=== PATIENT | female | born 1995 | race Caucasian/White ===

== ENCOUNTER 2024-12-19 05:31 | Inpatient (IN) ==
[2024-12-19] MEDS ORDERED: LIDOCAINE 1% LOCAL 20 ML VIAL INFIL PRN (06:12)
[2024-12-19] MEDS ORDERED: OXYTOCIN 30 UNITS/NSS 30 UNITS/500 ML BAG IV PRN (06:12)
[2024-12-19] MEDS: LACTATED RINGER'S 1,000 ML IV PRN (06:19)
[2024-12-19 06:40] LABS: Hematocrit (blood only) 37.2 % (37.0-47.0); Hemoglobin 12.3 g/dl (12.0-16.0); Mean Corpuscular Hemoglobin 29.9 pg (25.0-34.0); Mean Corpuscular Volume 90.3 fL (80.0-100.0); Platelet Count 222 K/uL (130-400); RDW Standard Deviation 45.6 fL (36.4-46.3); Red Blood Count 4.12 M/uL (4.20-5.40); White Blood Count 13.70 K/ul (4.8-10.8)
[2024-12-19] MEDS ORDERED: NALBUPHINE HCL INJ 10 MG/ML AMP IV PRN ×2 (07:04→13:23)
[2024-12-19] MEDS ORDERED: diphenhydrAMINE 50 MG/ML VIAL IV PRN ×2 (07:04→13:23)
[2024-12-19] MEDS ORDERED: LIDOCAINE 2% MPF LOCAL 5 ML VIAL EPI PRN (07:04)
[2024-12-19] MEDS ORDERED: ROPIVACAINE 0.5% PF 5 MG/ML 20 ML VIAL EPI PRN (07:04)
[2024-12-19] MEDS ORDERED: ONDANSETRON INJ 2 MG/ML 2 ML VIAL IV PRN ×2 (07:04→13:44)
[2024-12-19] MEDS ORDERED: NALOXONE HCL 1 MG in SODIUM CHLORIDE 0.9% 1,000 ML IV PRN ×2 (07:04→13:23)
[2024-12-19] MEDS ORDERED: NALOXONE HCL 0.4 MG/1 ML VIAL/CARP IV PRN ×2 (07:04→13:23)
[2024-12-19] MEDS ORDERED: BUPIVACAINE 0.25% PF 30 ML VIAL EPI PRN (07:04)
[2024-12-19] MEDS ORDERED: SODIUM CHLORIDE 0.9% PF INJ 10 ML VIAL EPI PRN (07:04)
[2024-12-19] MEDS ORDERED: fentANYL 2 MCG/ML BUPIVacaine 0.125%-NSS 100ML BAG EPI PRN (07:04)
--- NOTE | 2024-12-19 07:07 | Anesthesiology Consultation ---
Date of Service December 19, 2024 Assessment & Plan (1) Encounter for pre-operative examination: Chart Review Chart Review: Patient NOT seen in Pre Admission Testing and Acceptable Risk for Labor Epidural Consults Requested none History Height/Weight Height: 5 ft 5 in Weight: 83.461 kg Allergies Allergy/AdvReac Type Severity Reaction Status Date / Time No Known Allergies Allergy Verified 12/19/24 05:50 Medications Home Medications Medication Instructions Recorded Confirmed Last Taken vitamins no.119-iron 1 tab PO DAILY 01/01/24 12/19/24 12/18/24 fumarate 29 mg-folic acid 1 mg tablet Active Medications Generic Name Dose Route Start Last Admin Trade Name Freq PRN Reason Stop Dose Admin Lactated Ringer's 1,000 mls @ 125 mls/hr 12/19/24 06:12 12/19/24 07:14 Lr IV 12/21/24 06:11 125 mls/hr .Q8H PRN Administration L&D Protocol Protocol Past Medical History Medical History (Updated 12/19/24 @ 07:05 by Mati Bal MD) Encounter for pre-operative examination Elevated blood pressure reading Exercise / Class Metabolic Activity II 4-5 Yardwork/Stairs/Walk up hill Past Family History Family History Grandmother (Maternal) Colorectal cancer Grandfather (Paternal) Myocardial infarction Denies family history of Ovarian cancer Breast cancer Uterine cancer Past Surgical History Surgical History H/O wisdom tooth extraction Hx of tonsillectomy Hx of LASIK Social History Smoking Status: Never smoker Do You Dip or Chew Tobacco: No Hx Alcohol Use: No Hx Substance Use: Yes substance use type: does not use Physical Exam Vital Signs Last Vital Signs Temp 36.9 C 12/19/24 05:50 Pulse 93 H 12/19/24 07:02 Resp 18 12/19/24 05:50 BP 122/76 12/19/24 05:53 Pulse Ox 100 12/19/24 07:02 Testing Laboratory Results 12/19/24 06:21
[2024-12-19] MEDS: LIDOCAINE 2%/EPINEPHRINE 1:200,000 20 ML PF ONE (07:34)
[2024-12-19] MEDS: BUPIVACAINE 0.25% PF 30 ML VIAL ONE (07:34)
[2024-12-19] MEDS: fentANYL 2 MCG/ML BUPIVacaine 0.125%-NSS 100ML BAG ONE (07:34)
--- NOTE | 2024-12-19 08:09 | History & Physical Report ---
Date of Service December 19, 2024 Assessment & Plan (1) Encounter for supervision of normal intrauterine in primigravida, antepartum: Plan: Deonna is a 29-year-old G1, P0 currently at 40 weeks 2 days gestational age presents in labor. has been uncomplicated to date. GBS negative. Vitals within normal limits. (2) Normal labor: Admission and Anticipated Discharge Date Admission Date: December 19, 2024 History of Present Illness Primary Care Provider: ADRIANO eDwey 29-year-old presents Deonna is a 29-year-old currently at 40 weeks 2 days gestational age presents in labor. Reporting regular painful contractions. Denies leakage of fluid. Good movement noted. has been uncomplicated to date Allergies Allergy/AdvReac Type Severity Reaction Status Date / Time No Known Allergies Allergy Verified 12/19/24 05:50 Home Medications Medication Instructions Recorded Confirmed Type vitamins no.119-iron 1 tab PO DAILY 01/01/24 12/19/24 History fumarate 29 mg-folic acid 1 mg tablet Patient History Medical History (Updated 12/19/24 @ 08:08 by Sarthak Rainey MD) Encounter for pre-operative examination Elevated blood pressure reading Surgical History H/O wisdom tooth extraction Hx of tonsillectomy Hx of LASIK Family History Grandmother (Maternal) Colorectal cancer Grandfather (Paternal) Myocardial infarction Denies family history of Ovarian cancer Breast cancer Uterine cancer Social History Smoking Status: Never smoker Do You Dip or Chew Tobacco: No; Hx Alcohol Use: No Hx Substance Use: Yes Preferred Language: Micronesian Applied Statistician Required: No Beliefs That Will Affect Care: None marital status: marital status details: Candelario Grace (28) [phone] Current Living Situation: Spouse Current Living Situation Comment: Lives with - 1 dog current occupational status: employed 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 How many Children do You have: 0 How many Children do You have Comment: 0 Other Information That Helps Us Care for You: No Feels Safe at Home: Yes Safety Concerns: Feels Safe At This Time Do you think of yourself as: straight/heterosexual Gender Identity: Female Assistive Devices: None Physical Exam Genitourinary: Manual OB Exam: + cervical dilation 5 cm OB Exam Monitor Tracing: + external FHT monitor used, + external uterine monitor used, + category I and + normal FHT variability Exam per nurse Results & Data Vital Signs (Past 12 Hours) Vital Signs Temp Pulse Resp BP Pulse Ox 12/19/24 07:38 77 95 12/19/24 07:37 94 12/19/24 07:37 77 12/19/24 07:37 78 122/63 12/19/24 07:35 76 123/65 12/19/24 07:33 77 121/62 96 12/19/24 07:29 80 93 12/19/24 07:28 99 12/19/24 07:28 81 12/19/24 07:28 75 115/69 12/19/24 07:25 85 118/67 12/19/24 07:23 88 100 12/19/24 07:18 87 100 12/19/24 07:13 94 H 99 12/19/24 07:09 90 135/74 12/19/24 07:08 88 100 12/19/24 07:02 93 H 100 12/19/24 06:57 95 H 100 12/19/24 06:52 85 100 12/19/24 06:47 92 H 100 12/19/24 06:44 86 93 12/19/24 06:42 92 H 100 12/19/24 06:37 86 100 12/19/24 06:32 96 H 98 12/19/24 06:27 82 97 12/19/24 05:53 96 H 122/76 12/19/24 05:50 36.9 C 18 Coding Level of Care Code None Diagnoses Encounter for supervision of normal intrauterine in primigravida, ant epartum Z34.00 Normal labor O80; Z37.9
--- NOTE | 2024-12-19 09:08 | Labor Progress Brief Note ---
Date of Service December 19, 2024 Subjective comfortable w/ epidural Assessment & Plan (1) Normal labor: Plan: 29 yo G1 at 40 2/7 wga admitted in labor VSS Fetus cat 2 w/ intermit variables but good variability Labor - good progress noted, ?srom on last nursing exam but forebag palpated. Discussed arom and pt agreeable, tolerated well GBS neg epidural in place Admission and Anticipated Discharge Date Admission Date: December 19, 2024 Physical Exam Genitourinary: Manual OB Exam: + cervical dilation (8-9), + cervical effacement 90% and + station -1 and 0 OB Exam Monitor Tracing: + external FHT monitor used, + external uterine monitor used (q3) and + category II (145/mod/+accel/intermit variables) Results & Data Vital Signs (Past 12 Hours) Vital Signs Temp Pulse Resp BP Pulse Ox 12/19/24 08:58 74 99 12/19/24 08:55 75 125/76 12/19/24 08:53 77 100 12/19/24 08:48 75 99 12/19/24 08:43 89 99 12/19/24 08:41 84 126/66 12/19/24 08:38 76 98 12/19/24 08:33 75 99 12/19/24 08:28 86 98 12/19/24 08:24 84 123/78 12/19/24 08:23 80 97 12/19/24 08:18 78 97 12/19/24 08:13 86 96 12/19/24 08:10 75 122/77 12/19/24 08:08 86 95 12/19/24 08:03 84 96 12/19/24 07:58 85 96 12/19/24 07:53 89 125/79 97 12/19/24 07:49 78 130/81 12/19/24 07:48 79 97 12/19/24 07:43 75 113/57 L 95 12/19/24 07:39 98.6 F 80 18 113/57 L 95 12/19/24 07:38 77 95 12/19/24 07:37 94 12/19/24 07:37 77 12/19/24 07:37 78 122/63 12/19/24 07:35 76 123/65 12/19/24 07:33 77 121/62 96 12/19/24 07:29 80 93 12/19/24 07:28 99 12/19/24 07:28 81 12/19/24 07:28 75 115/69 12/19/24 07:25 85 118/67 12/19/24 07:23 88 100 12/19/24 07:18 87 100 12/19/24 07:13 94 H 99 12/19/24 07:09 90 135/74 12/19/24 07:08 88 100 12/19/24 07:02 93 H 100 12/19/24 06:57 95 H 100 12/19/24 06:52 85 100 12/19/24 06:47 92 H 100 12/19/24 06:44 86 93 12/19/24 06:42 92 H 100 12/19/24 06:37 86 100 12/19/24 06:32 96 H 98 12/19/24 06:27 82 97 12/19/24 05:53 96 H 122/76 12/19/24 05:50 98.4 F 18 Coding Level of Care Code None Diagnoses Normal labor O80; Z37.9
[2024-12-19] MEDS: SODIUM CHLORIDE 0.9% PF INJ 10 ML VIAL ONE (10:37)
[2024-12-19] MEDS: BUPIVACAINE 0.25% PF 30 ML VIAL EPI STA (10:39)
[2024-12-19] MEDS: SODIUM CHLORIDE 0.9% PF INJ 10 ML VIAL EPI STA (10:39)
[2024-12-19] MEDS: LIDOCAINE 2%/EPINEPHRINE 1:200,000 20 ML PF EPI STA (10:39)
[2024-12-19] MEDS ORDERED: PHENYLEPHRINE HCL 25 MG/250 ML NSS IV ONE (12:35)
[2024-12-19] MEDS ORDERED: DEXAMETHASONE SOD INJ 4 MG/ML VIAL ONE (12:35)
[2024-12-19] MEDS ORDERED: LIDOCAINE 2%/EPINEPHRINE 1:200,000 20 ML PF ONE (12:35)
[2024-12-19] MEDS ORDERED: ONDANSETRON INJ 2 MG/ML 2 ML VIAL ONE (12:35)
[2024-12-19] MEDS ORDERED: PHENYLEPHRINE 100MCG/ML 5ML SYR ONE ×2 (12:35→13:14)
[2024-12-19] MEDS ORDERED: OXYTOCIN 10 UNITS/ML VIAL ONE (12:35)
[2024-12-19] MEDS: TERBUTALINE SULFATE 1 MG/ML VIAL SQ ONE (12:36)
[2024-12-19] MEDS ORDERED: MoRPHine SULFATE PF 1 MG/ML 10 ML AMP/VIAL ONE (12:36)
[2024-12-19] MEDS: AZITHROMYCIN 500 MG/255 ML BAG IV ONE (13:00)
[2024-12-19 13:12] LABS: Base Excess Cord Arterial Bld -5.8 mEq/L (-9-1.8); Base Excess Cord Venous Blood -5.5 mEq/L (-7.7-1.9); CO2 Cord Arterial Blood 61 mmHg (39.1-73.5); Cord Venous Blood PO2 < 20 mmHg (14.1-43.3); HCO3 Cord Arterial Blood 23 mmol/L (19.7-28.5); Oxygen Sat Cord Arterial Blood < 60.0 % (<60); PO2 Cord Arterial Blood < 20 mmHg (4.1-31.7); pH Cord Arterial Blood 7.19 (7.1-7.38)
[2024-12-19] MEDS ORDERED: MoRPHine SULFATE PF 1 MG/ML 10 ML AMP/VIAL EPI ONE (13:23)
[2024-12-19] MEDS ORDERED: LACTATED RINGER'S 500 ML IV PRN (13:23)
[2024-12-19] MEDS ORDERED: NALOXONE HCL 0.08 MG in SYRINGE 1.8 ML IV PRN (13:23)
[2024-12-19] MEDS ORDERED: DC INTRASPINAL MORPHINE SCH (13:30)
[2024-12-19] MEDS ORDERED: SODIUM CHLORIDE 0.9% 1,000 ML IV SCH (13:30)
[2024-12-19] MEDS ORDERED: NO NARCOTICS OR SEDATIVES SCH (13:30)
[2024-12-19] MEDS ORDERED: METHYLERGONOVINE MALEATE 0.2 MG/ML AMP ONE (13:40)
[2024-12-19] MEDS ORDERED: MAGNESIUM HYDROXIDE SUSP 30 ML UDC PO PRN (13:44)
[2024-12-19] MEDS ORDERED: HYDROCORTISONE ACETATE 25 MG SUPP PR PRN (13:44)
[2024-12-19] MEDS ORDERED: SENNA 8.6 MG TAB PO PRN (13:44)
[2024-12-19] MEDS ORDERED: CALCIUM CARBONATE 500 MG CHEWABLE TAB PO PRN (13:44)
--- NOTE | 2024-12-19 14:05 | Operative Report ---
Post Operative Report Pre & Post Diagnosis Operation Date: 12/19/24 12:40 Pre-Op Diagnosis: Intrauterine at 40 2/7 wga, labor, non-reassuring heart tones, failed vacuum Post-Op Diagnosis: Intrauterine at 40 2/7 wga, labor, non-reassuring heart tones, failed vacuum I identified the patient and participated in the time-out.: Yes Procedure Operation Date: 12/19/24 12:40 Actual Procedures p Primary Low Transverse Section in LD; DELIVERY OF LIVE MALE AT 1254, Repair of Vaginal Laceration - Alka Zazueta MD Surgeon Alka Zazueta MD Mental Health Director MD Simona Quantitative Blood Loss (QBL) 928 Findings Consistent with Post-Op Diagnosis Viable male infant with APGARS 9 and 9 weighing 8lbs 6oz. Normal appearing uterus, bilateral fallopian tubes, ovaries. Fluids UOP 100cc clear urine by shaikh catheter Specimens Cord blood Drains Shaikh draining clear urine Anesthesia Type Labor Epidural Complications none Disposition Accompanied Patient To Recovery: Yes Disposition: L&D Indications 29 yo G1 at 40 2/7 wga presented early this morning in labor. She received an epidural for pain control. She was suspected to undergo srom however forebag was palpated at approximately 8cm. Arom of forebag was then performed and she progressed to complete. Shortly after, pushing began however deep variable decelerations were noted so pushing was paused to allow fetus to recover. When pushing began again, fetus was noted to be +2 station with good effort but variables again began. Given good effort and descent with pushing, discussed attempt at vacuum assisted delivery vs CS, risks and benefits of each. See note for details. Due to tracing and delivery not being imminent, vacuum was stopped and decision was made to proceed with CS Description of Procedure The patient was taken to the operating room after consents were ensured. The patient was properly identified. Epidural anesthesia was bolused without difficulty. The patient was placed in a dorsal supine position with left lateral tilt, then prepped and draped in normal sterile fashion. Surgical time out was performed. Antibiotics were given for prophylaxis. Anesthesia was tested to ensure adequate surgical levels. Pfannenstiel skin incision was performed and carried down to the underlying fascia with a knife. The fascia was then nicked in the midline and extended laterally with pickups and Nelson scissors. Superior portion of the fascia was grasped with Kochers x2 and elevated off the underlying rectus muscles using blunt dissection. Inferior portion of the fascia was then grasped with Chon clamps x2 and also elevated off the underlying muscles with blunt dissection. Midline was identified. The peritoneum was then entered and extended to provide adequate room for delivery of baby. A hand was inserted into the abdomen, uterus was noted to be clear of adhesions. Bladder blade was inserted, bladder flap was created in the usual fashion. A low transverse uterine incision was made in the uterus and extended bluntly in a superior to inferior fashion. Light meconium was noted upon entry into the uterus. head was grasped and elevated through the hysterotomy in an atraumatic fashion. The baby delivered in DANE position, no nuchal cord. Remainder of the body delivered without incident. Nose and mouth were bulb suctioned on the surgical field. The cord was double clamped and cut, baby was handed off to awaiting pediatrics staff. Cord segment and blood were obtained. Placenta was then expressed from the uterus. The uterus was exteriorized. Several passes were made inside the uterus to remove the remaining membranes. Attention was then turned to the hysterotomy, which was then closed with a running locked suture of 0 Vicryl on a CTX needle. An imbricating layer was then performed using 0-Monocryl. There was noted to be good hemostasis. The posterior cul-de-sac was then inspected and cleaned of clot and debris. The hysterotomy was again inspected and noted to be hemostatic. The uterus was returned to the abdomen. The right and left pericolic gutters were cleaned of all clot and debris. The hysterotomy was again noted to be hemostatic. Space of Retzius was noted to be hemostatic. August was applied to the hysterotomy and space of retzius. The fascia was then closed with a running suture of 0 Vicryl on a CT1 needle. Subcutaneous tissue was copiously irrigated and noted to be hemostatic. Subcutaneous tissue was re-approximated using 2-0 plain gut. The skin was then closed with a running suture of 3-0 Monocryl in a subcuticular fashion. At termination of the procedure, fundal pressure was applied and increased lochia was expressed so methergine was administered which improved it. Pressure dressing was applied to the patient. Vaginal exam was performed which demonstrated vaginal abrasion at the introitus. This was repaired with 3-0 vicryl, there was then excellent hemostasis. She tolerated the procedure well. All sponge, needle, instrument counts were correct x 2. I attest to the content of the Intraoperative Record and any orders documented therein. Any exceptions are noted below. OB Procedure Charges 09011
[2024-12-19] MEDS: KETOROLAC 30 MG/ML VIAL IV SCH (14:34)
--- NOTE | 2024-12-19 14:41 | Labor Progress Brief Note ---
Date of Service December 19, 2024 Assessment & Plan (1) Normal labor: Plan: Delayed entry due to patient care. Called to bedside to assess pushing and presented immediately. descent noted with pushing however deep variables occurred with contractions/pushing but recovered in between and pt had progressed spontaneously. Discussed attempt at vacuum given station and good effort but potential need for if vacuum not rapidly successful. Discussed risks and benefits of each with risk including cephalohematoma, IVH, scalp laceration and pt agreeable. Peds and anesthesia were made aware. Straight catheter was performed. head was palpated in DANE position and vacuum applied over flexion point and increased into green zone. With next contraction, pt pushed and vacuum was pulled with progress noted. Vacuum was pulled with next contraction however tracing took longer to recover following this without imminent delivery so decision was made to stop vacuum and proceed with CS for NRFHT. Terbutaline was administered and heart tracing did recover to baseline. Verbal informed consent for CS was obtained due to urgency. Discussed indications, risks including infection, bleeding, injury to adjacent structures (bowel, bladder, ureters, blood vessels, nerves, baby), possible need for blood transfusion and/or life saving hysterectomy, VTE. Patient verbalized understanding and agreeable to proceed. Admission and Anticipated Discharge Date Admission Date: December 19, 2024 Results & Data Vital Signs (Past 12 Hours) Vital Signs Temp Pulse Resp BP Pulse Ox 12/19/24 14:31 80 149/67 H 100 12/19/24 14:26 85 99 12/19/24 14:21 99 12/19/24 14:21 90 12/19/24 14:21 89 135/74 12/19/24 14:16 92 H 99 12/19/24 14:11 94 H 134/65 99 12/19/24 14:06 91 H 100 12/19/24 14:01 87 140/76 100 12/19/24 12:39 137 H 126/72 12/19/24 12:35 101 H 100 12/19/24 12:30 117 H 100 12/19/24 12:27 97 H 88 L 12/19/24 12:25 100 12/19/24 12:25 87 12/19/24 12:25 81 123/65 12/19/24 12:20 87 100 12/19/24 12:15 92 H 90 12/19/24 12:14 86 100 12/19/24 12:10 77 115/60 12/19/24 12:09 97 H 96 12/19/24 12:08 93 H 90 12/19/24 12:04 81 100 12/19/24 11:58 101 H 100 12/19/24 11:57 92 H 92 12/19/24 11:55 99.1 F 83 20 110/54 L 12/19/24 11:53 83 99 12/19/24 11:48 82 100 12/19/24 11:46 20 12/19/24 11:46 20 12/19/24 11:43 84 100 12/19/24 11:39 82 104/54 L 12/19/24 11:38 83 100 12/19/24 11:35 92 H 91 12/19/24 11:33 85 99 12/19/24 11:28 84 98 12/19/24 11:24 89 115/58 L 12/19/24 11:23 85 98 12/19/24 11:18 90 98 12/19/24 11:16 20 12/19/24 11:16 20 12/19/24 11:13 84 98 12/19/24 11:08 84 98 12/19/24 11:03 92 H 97 12/19/24 10:58 83 99 12/19/24 10:54 87 118/63 12/19/24 10:53 96 H 99 12/19/24 10:50 98 H 94 12/19/24 10:48 93 H 100 12/19/24 10:46 20 12/19/24 10:46 20 12/19/24 10:43 101 H 100 12/19/24 10:40 85 126/78 12/19/24 10:38 100 H 100 12/19/24 10:33 83 100 12/19/24 10:31 20 12/19/24 10:31 20 12/19/24 10:28 87 97 12/19/24 10:24 84 124/74 12/19/24 10:23 85 100 12/19/24 10:18 81 99 12/19/24 10:16 20 12/19/24 10:16 20 12/19/24 10:13 80 94 12/19/24 10:09 85 127/76 12/19/24 10:08 84 100 09/19/25 10:03 79 99 12/19/24 10:01 20 12/19/24 10:01 20 12/19/24 09:58 87 100 12/19/24 09:54 76 128/70 12/19/24 09:53 84 99 12/19/24 09:48 80 100 12/19/24 09:45 20 12/19/24 09:45 20 12/19/24 09:43 83 100 12/19/24 09:40 75 122/74 12/19/24 09:38 81 100 12/19/24 09:33 85 100 12/19/24 09:31 20 12/19/24 09:31 20 12/19/24 09:28 79 100 12/19/24 09:24 83 131/77 12/19/24 09:23 86 100 12/19/24 09:18 80 99 12/19/24 09:16 20 12/19/24 09:16 20 12/19/24 09:13 79 100 12/19/24 09:10 75 128/77 12/19/24 09:08 75 100 12/19/24 09:06 82 92 12/19/24 09:03 69 99 12/19/24 09:02 20 12/19/24 09:02 20 12/19/24 08:58 74 99 12/19/24 08:55 75 125/76 12/19/24 08:53 77 100 12/19/24 08:48 75 99 12/19/24 08:46 20 12/19/24 08:46 20 12/19/24 08:43 89 99 12/19/24 08:41 84 126/66 12/19/24 08:38 76 98 12/19/24 08:33 75 99 12/19/24 08:28 86 98 12/19/24 08:24 84 123/78 12/19/24 08:23 80 97 12/19/24 08:18 78 97 12/19/24 08:16 20 12/19/24 08:16 20 12/19/24 08:13 86 96 12/19/24 08:10 75 122/77 12/19/24 08:08 86 95 12/19/24 08:03 84 96 12/19/24 08:01 20 12/19/24 08:01 20 09/19/25 07:58 85 96 12/19/24 07:53 89 125/79 97 12/19/24 07:49 78 130/81 12/19/24 07:48 79 97 12/19/24 07:47 20 12/19/24 07:47 20 12/19/24 07:43 75 113/57 L 95 12/19/24 07:39 98.6 F 80 18 113/57 L 95 12/19/24 07:38 77 95 12/19/24 07:37 94 12/19/24 07:37 77 12/19/24 07:37 78 122/63 12/19/24 07:35 76 123/65 12/19/24 07:33 77 121/62 96 12/19/24 07:31 20 12/19/24 07:31 20 12/19/24 07:29 80 93 12/19/24 07:28 99 12/19/24 07:28 81 12/19/24 07:28 75 115/69 12/19/24 07:25 85 118/67 12/19/24 07:23 88 100 12/19/24 07:18 87 100 12/19/24 07:13 94 H 99 12/19/24 07:09 90 135/74 12/19/24 07:08 88 100 12/19/24 07:02 93 H 100 12/19/24 06:57 95 H 100 12/19/24 06:52 85 100 12/19/24 06:47 92 H 100 12/19/24 06:44 86 93 12/19/24 06:42 92 H 100 12/19/24 06:37 86 100 12/19/24 06:32 96 H 98 12/19/24 06:27 82 97 12/19/24 05:53 96 H 122/76 12/19/24 05:50 98.4 F 18 Coding Level of Care Code None Diagnoses Normal labor O80; Z37.9
[2024-12-19] MEDS: DIPHTHER/TETAN/PERTUS Vaccine (Tdap, Adol/Adult) 0.5mL IM ONE (14:55)
--- NOTE | 2024-12-19 15:07 | Anesthesia Procedure Note ---
Date of Service December 19, 2024 Anesthesia Post Epidural Note Vital Signs Vital Signs: Temp Pulse Resp BP Pulse Ox 36.7 C 81 20 145/76 H 99 12/19/24 15:00 12/19/24 15:06 12/19/24 15:00 12/19/24 15:01 12/19/24 15:01 Pain Intensity Bilateral Abdomen: Pain Intensity: 0 Notes Mental Status: alert / awake / arousable and participated in evaluation Patient Amnestic to Procedure: No Nausea / Vomiting: adequately controlled Pain: adequately controlled Airway Patency, RR, SpO2: stable & adequate BP & HR: stable & adequate Hydration State: stable & adequate Neuraxial Anesthesia: was administered and sensory block is resolving Anesthetic Complications: no major complications apparent and Pt Satisfied with anesthetic care Epidural: Removed without complications and With tip intact
--- NOTE | 2024-12-19 15:08 | Anesthesiology Progress Note ---
Date of Service December 19, 2024 Anesthesia Post Procedure Vital Signs Vital Signs: Temp Pulse Resp BP Pulse Ox 12/19/24 15:06 81 100 12/19/24 15:01 99 12/19/24 15:01 76 12/19/24 15:01 79 145/76 H 12/19/24 15:00 36.7 C 20 99 12/19/24 14:56 73 98 12/19/24 14:51 74 143/69 H 99 12/19/24 14:50 22 99 12/19/24 14:46 80 100 12/19/24 14:41 75 142/65 H 98 12/19/24 14:40 20 100 12/19/24 14:36 77 100 12/19/24 14:31 80 149/67 H 100 12/19/24 14:30 20 100 12/19/24 14:26 85 99 12/19/24 14:21 99 12/19/24 14:21 90 12/19/24 14:21 89 135/74 12/19/24 14:16 92 H 99 12/19/24 14:11 94 H 134/65 99 12/19/24 14:06 91 H 100 12/19/24 14:01 87 140/76 100 12/19/24 12:39 137 H 126/72 12/19/24 12:35 101 H 100 12/19/24 12:30 117 H 100 12/19/24 12:27 97 H 88 L 12/19/24 12:25 100 12/19/24 12:25 87 12/19/24 12:25 81 123/65 12/19/24 12:20 87 100 12/19/24 12:15 92 H 90 12/19/24 12:14 86 100 12/19/24 12:10 77 115/60 12/19/24 12:09 97 H 96 12/19/24 12:08 93 H 90 12/19/24 12:04 81 100 12/19/24 11:58 101 H 100 12/19/24 11:57 92 H 92 12/19/24 11:55 37.3 C 83 20 110/54 L 12/19/24 11:53 83 99 12/19/24 11:48 82 100 12/19/24 11:46 20 12/19/24 11:46 20 12/19/24 11:43 84 100 12/19/24 11:39 82 104/54 L 12/19/24 11:38 83 100 12/19/24 11:35 92 H 91 12/19/24 11:33 85 99 12/19/24 11:28 84 98 12/19/24 11:24 89 115/58 L 12/19/24 11:23 85 98 12/19/24 11:18 90 98 12/19/24 11:16 20 12/19/24 11:16 20 12/19/24 11:13 84 98 12/19/24 11:08 84 98 12/19/24 11:03 92 H 97 12/19/24 10:58 83 99 12/19/24 10:54 87 118/63 12/19/24 10:53 96 H 99 12/19/24 10:50 98 H 94 12/19/24 10:48 93 H 100 12/19/24 10:46 20 12/19/24 10:46 20 12/19/24 10:43 101 H 100 12/19/24 10:40 85 126/78 12/19/24 10:38 100 H 100 12/19/24 10:33 83 100 12/19/24 10:31 20 12/19/24 10:31 20 12/19/24 10:28 87 97 12/19/24 10:24 84 124/74 12/19/24 10:23 85 100 12/19/24 10:18 81 99 12/19/24 10:16 20 12/19/24 10:16 20 12/19/24 10:13 80 94 12/19/24 10:09 85 127/76 12/19/24 10:08 84 100 12/19/24 10:03 79 99 12/19/24 10:01 20 12/19/24 10:01 20 12/19/24 09:58 87 100 12/19/24 09:54 76 128/70 12/19/24 09:53 84 99 12/19/24 09:48 80 100 12/19/24 09:45 20 12/19/24 09:45 20 12/19/24 09:43 83 100 12/19/24 09:40 75 122/74 12/19/24 09:38 81 100 12/19/24 09:33 85 100 12/19/24 09:31 20 12/19/24 09:31 20 12/19/24 09:28 79 100 12/19/24 09:24 83 131/77 12/19/24 09:23 86 100 12/19/24 09:18 80 99 12/19/24 09:16 20 12/19/24 09:16 20 12/19/24 09:13 79 100 12/19/24 09:10 75 128/77 12/19/24 09:08 75 100 12/19/24 09:06 82 92 12/19/24 09:03 69 99 12/19/24 09:02 20 12/19/24 09:02 20 12/19/24 08:58 74 99 12/19/24 08:55 75 125/76 12/19/24 08:53 77 100 12/19/24 08:48 75 99 12/19/24 08:46 20 12/19/24 08:46 20 12/19/24 08:43 89 99 12/19/24 08:41 84 126/66 12/19/24 08:38 76 98 12/19/24 08:33 75 99 12/19/24 08:28 86 98 12/19/24 08:24 84 123/78 12/19/24 08:23 80 97 12/19/24 08:18 78 97 12/19/24 08:16 20 12/19/24 08:16 20 12/19/24 08:13 86 96 12/19/24 08:10 75 122/77 12/19/24 08:08 86 95 12/19/24 08:03 84 96 12/19/24 08:01 20 12/19/24 08:01 20 12/19/24 07:58 85 96 12/19/24 07:53 89 125/79 97 12/19/24 07:49 78 130/81 12/19/24 07:48 79 97 12/19/24 07:47 20 12/19/24 07:47 20 12/19/24 07:43 75 113/57 L 95 12/19/24 07:39 37.0 C 80 18 113/57 L 95 12/19/24 07:38 77 95 12/19/24 07:37 94 12/19/24 07:37 77 09/19/25 07:37 78 122/63 09/19/25 07:35 76 123/65 12/19/24 07:33 77 121/62 96 12/19/24 07:31 20 12/19/24 07:31 20 12/19/24 07:29 80 93 12/19/24 07:28 99 12/19/24 07:28 81 12/19/24 07:28 75 115/69 12/19/24 07:25 85 118/67 12/19/24 07:23 88 100 12/19/24 07:18 87 100 12/19/24 07:13 94 H 99 12/19/24 07:09 90 135/74 12/19/24 07:08 88 100 12/19/24 07:02 93 H 100 12/19/24 06:57 95 H 100 12/19/24 06:52 85 100 12/19/24 06:47 92 H 100 12/19/24 06:44 86 93 12/19/24 06:42 92 H 100 12/19/24 06:37 86 100 12/19/24 06:32 96 H 98 12/19/24 06:27 82 97 12/19/24 05:53 96 H 122/76 12/19/24 05:50 36.9 C 18 Pain Intensity Bilateral Abdomen: Pain Intensity: 0 Transfer of Care Handoff Completed per policy Notes Mental Status: alert / awake / arousable and participated in evaluation Patient Amnestic to Procedure: No Nausea / Vomiting: adequately controlled Pain: adequately controlled Airway Patency, RR, SpO2: stable & adequate BP & HR: stable & adequate Hydration State: stable & adequate Neuraxial Anesthesia: was administered and sensory block is resolving Anesthetic Complications: no major complications apparent and Pt Satisfied with anesthetic care
[2024-12-19] MEDS: CITRIC ACID/SODIUM CITRATE 15 ML UDC ONE (15:26)
[2024-12-19] MEDS: NURSING L&D Epidural Breakthrough Pain Update ONE (16:20)
[2024-12-19] MEDS: OXYTOCIN 20 UNITS/LR 1,002 ML IV SCH ×2 (16:21→18:38)
[2024-12-19] MEDS: HYDROmorphone INJ 0.5 MG/0.5 ML SYR IV PRN (17:05)
[2024-12-19] MEDS: ONDANSETRON INJ 2 MG/ML 2 ML VIAL IV PRN (18:08)
[2024-12-19] MEDS: PROMETHAZINE 6.25 MG/50.25 ML BAG IV PRN (18:37)
[2024-12-19] MEDS: SIMETHICONE 80 MG CHEW PO SCH (19:31)
[2024-12-19] MEDS: ACETAMINOPHEN 325 MG TAB PO SCH (19:31)
[2024-12-19] MEDS: DOCUSATE SODIUM 100 MG CAP PO SCH (19:31)
--- NOTE | 2024-12-19 22:37 | Electrocardiogram Report ---
Test Reason : Blood Pressure : */* mmHG Vent. Rate : 69 BPM Atrial Rate : 69 BPM P-R Int : 146 ms QRS Dur : 82 ms QT Int : 382 ms P-R-T Axes : 46 66 35 degrees QTcB Int : 409 ms Sinus rhythm with Premature atrial complexes Otherwise normal ECG No previous ECGs available Confirmed by Wellington Santos ([id number]) on 12/19/2024 10:37:16 PM Referred By: Sarthak Rainey Confirmed By: Wellington Santos
[2024-12-20] MEDS: LACTATED RINGER'S 1,000 ML IV SCH (02:59)
[2024-12-20 06:49] LABS: Hematocrit (blood only) 29.6 % (37.0-47.0); Hemoglobin 9.7 g/dl (12.0-16.0); Mean Corpuscular Hemoglobin 29.8 pg (25.0-34.0); Mean Corpuscular Volume 91.1 fL (80.0-100.0); Platelet Count 169 K/uL (130-400); RDW Standard Deviation 47.1 fL (36.4-46.3); Red Blood Count 3.25 M/uL (4.20-5.40)
[2024-12-20 07:19] LABS: Immature Granulocytes # (auto) 0.21 K/uL (0.01-0.20); Immature Granulocytes % (auto) 1.0 %; Toxic Granulation 1+; White Blood Count 21.89 K/ul (4.8-10.8)
[2024-12-20] MEDS ORDERED: diphenhydrAMINE 50 MG/ML VIAL IV PRN (07:23)
[2024-12-20] MEDS ORDERED: PROMETHAZINE 12.5 MG/50.5 ML BAG IV PRN (07:23)
[2024-12-20] MEDS ORDERED: ONDANSETRON INJ 2 MG/ML 2 ML VIAL IV PRN (07:23)
[2024-12-20] MEDS ORDERED: diphenhydrAMINE Capsule 25 MG CAP PO PRN (07:23)
[2024-12-20] MEDS ORDERED: HYDROmorphone INJ 0.5 MG/0.5 ML SYR IV PRN (07:23)
--- NOTE | 2024-12-20 07:36 | Obstetrical Progress Note ---
Date of Service December 20, 2024 Assessment & Plan (1) Encounter for care and examination after delivery: Plan 29 yo POD 1 from p[facility]CS -not yet voided but feeling better today so will see if able to void vs catheter reinsertion, otherwise meeting all postop milestones -A+/rubella immune -continue routine care, await void Subjective Ambulation: ambulating normally Passing Gas:: Yes Diet Tolerance:: regular diet Lochia:: Small Feeding Type:: breast feeding Pain well managed with medication. Catheter out last night but not yet voided Review of Systems Denies fevers, chills, n/v, LUI, CP, SOB Physical Exam Constitutional WD/WN, vitals as above no acute distress Respiratory normal respiratory effort, lungs clear to auscultation Cardiovascular RRR, no murmur, no edema Gastrointestinal (Abdomen) Percussion/Palpation: abdomen soft; abdomen nontender fundus firm at umbilicus and NT, dressing c/d/i Musculoskeletal BLE symmetric, nonerythematous, nontender Results & Data Vital Signs (Past 12 Hours) Vital Signs Temp Pulse Resp BP Pulse Ox O2 Del Method 12/20/24 05:56 18 96 12/20/24 04:09 16 91 12/20/24 03:26 18 97 12/20/24 02:26 18 95 12/20/24 02:00 97.9 F 94 H 18 107/68 97 Room Air 12/20/24 01:30 16 96 12/20/24 00:00 16 95 12/19/24 23:20 98.1 F 89 18 106/67 93 Room Air 12/19/24 23:00 16 94 12/19/24 22:00 16 96 12/19/24 21:35 18 97 12/19/24 20:41 16 94
[2024-12-20] MEDS: PRENATAL VITAMIN 1 TAB PO SCH (08:22)
[2024-12-20] MEDS: FERROUS SULFATE 325 MG TAB PO SCH (08:22)
[2024-12-20] MEDS: BENZOCAINE 20% SPRY 85 APPLN/85 GM CAN EXT PRN (08:24)
[2024-12-20] MEDS: IBUPROFEN 600 MG TAB PO SCH (13:28)
[2024-12-20] MEDS ORDERED: KETOROLAC 30 MG/ML VIAL IV PRN (13:30)
[2024-12-21] MEDS ORDERED: Nursing to Pharmacy Communication SCH (01:00)
[2024-12-21 06:40] LABS: Hematocrit (blood only) 27.3 % (37.0-47.0); Hemoglobin 8.9 g/dl (12.0-16.0)
--- NOTE | 2024-12-21 08:40 | Obstetrical Progress Note ---
Date of Service December 21, 2024 Assessment & Plan (1) Encounter for care and examination after delivery: Postoperative day #2 patient is doing well ambulating incision is clean dry and intact she has no extremity pain bandages removed incision is clean Subjective Ambulation: ambulating normally Voiding: no voiding problems Passing Gas:: Yes Diet Tolerance:: regular diet Lochia:: Small Physical Exam Constitutional WD/WN, vitals as above well developed and well nourished Respiratory normal respiratory effort, lungs clear to auscultation normal respiratory effort Cardiovascular RRR, no murmur, no edema Gastrointestinal (Abdomen) normal bowel sounds, soft, nontender, no hepatosplenomegaly Results & Data Vital Signs (Past 12 Hours) Vital Signs Temp Pulse Resp BP Pulse Ox O2 Del Method 12/21/24 07:40 98.1 F 75 18 113/74 96 Room Air 12/20/24 23:19 97.7 F 79 18 113/72 98 Room Air
[2024-12-21] MEDS: IBUPROFEN 600 MG TAB PO PRN (13:26)
[2024-12-21] MEDS: ACETAMINOPHEN 325 MG TAB PO PRN (20:57)
--- NOTE | 2024-12-22 06:24 | Obstetrical Progress Note ---
Date of Service December 22, 2024 Assessment & Plan (1) examination following delivery: Plan 29 y/o post-op day 3 s/p delivery. was complicated by NRFHT and failed vacuum during attempted vaginal delivery. Feels well today. Vital signs stable Continue post- care Encourage ambulation and Pain controlled with ibuprofen Hgb stable Discharge home today, follow up with Dr. Zazueta in 6 weeks. Admission and Anticipated Discharge Date Admission Date: December 19, 2024 Supervising Physician Co-Signing Physician Notes Resident Physician Supervision Note: I was present with Dr. Cox during the history and exam. I discussed the case with the resident and agree with the findings and plan as documented in the note. Any exceptions or clarifications are listed here: [None] Documented By: Rudolph Jarvis MD, FACOG Subjective 29 y/o post-op day 3 s/p delivery. was complicated by NRFHT and failed vacuum during attempted vaginal . Ambulation: ambulating normally Voiding: no voiding problems Passing Gas:: Yes Diet Tolerance:: regular diet Lochia:: Small Feeding Type:: bottle feeding Current Pain Level: minimal Resting comfortably this AM in NAD. Denies LUI, CP, SOB, N/V/D, LE pain/swelling. Physical Exam Physical Exam: General: patient resting comfortably, NAD, non-toxic in appearance, AA&O x 4, answers questions appropriately. Skin: warm, dry, intact HEENT: NC/AT, anicteric sclera, conjunctiva without injection, moist mucus membranes. Heart: +S1/S2, regular, no m/r/g Lungs: equal air entry bilaterally, no rales/rhonchi/wheezes Abd: +BS, soft, NT/ND, uterine fundus firm at umbilicus, caesarean incision C/D/I. Ext: warm, no clubbing/cyanosis or edema Neuro: nonfocal, patient AA&O x 4, speech intact, no facial droop, moving all extremities on command. Results & Data Vital Signs (Past 12 Hours) Vital Signs Temp Pulse Resp BP Pulse Ox O2 Del Method 12/21/24 23:44 36.6 C 75 16 119/79 98 Room Air 12/21/24 19:25 36.6 C 88 16 108/71 99 Room Air
[2024-12-22 08:55] VITALS: BP 131/84; PULSE 76; RESP 18; TEMP 97.5; O2SAT 99
--- NOTE | 2024-12-24 10:44 | Discharge Summary ---
Date of Service December 24, 2024 Admission HPI Per Admitting Provider 29-year-old presents Deonna is a 29-year-old currently at 40 weeks 2 days gestational age presents in labor. Reporting regular painful contractions. Denies leakage of fluid. Good movement noted. has been uncomplicated to date Admission Exam (Per Admitting) Constitutional WD/WN, vitals as above no acute distress Respiratory normal respiratory effort, lungs clear to auscultation Cardiovascular RRR, no murmur, no edema Gastrointestinal (Abdomen) Percussion/Palpation: abdomen soft; abdomen nontender Genitourinary Manual OB Exam: + cervical dilation (8-9), + cervical effacement + 90% and + station + -1 and + 0 OB Exam Monitor Tracing: + external FHT monitor used, + external uterine monitor used (q3) and + category II (145/mod/+accel/intermit variables) Discharge Data Consultations 12/19/24 06:12 Consult Anesthesiology Stat Procedures Performed Operation Date: 12/19/24 12:40 Actual Procedures p Section in LD; DELIVERY OF LIVE MALE AT 1254 - Alak Zazueta MD Hospital Course (1) Normal labor: (2) examination following delivery: Plan 29 yo G1 at 40 2/7 wga presented early this morning in labor. She received an epidural for pain control. She was suspected to undergo srom however forebag was palpated at approximately 8cm. Arom of forebag was then performed and she progressed to complete. Shortly after, pushing began however deep variable decelerations were noted so pushing was paused to allow fetus to recover. When pushing began again, fetus was noted to be +2 station with good effort but variables again began. Given good effort and descent with pushing, discussed attempt at vacuum assisted delivery vs CS, risks and benefits of each. See note for details. Due to tracing and delivery not being imminent, vacuum was stopped and decision was made to proceed with CS. See op report for details. Post-op course was uncomplicated, discharged home on POD3 Coding Level of Care Code None Diagnoses Normal labor O80; Z37.9 examination following delivery Z39.2
== END 2024-12-22 11:33 | disposition home or self-care (01) | DRG 788 ==
LOC: OPB 05:31 → 4S1 05:33 → 4E2 17:05
DX: Z79.899 Other long term (current) drug therapy; Z3A.40 40 weeks gestation of pregnancy; O76 Abnormality in fetal heart rate and rhythm complicating labor and delivery; Z37.0 Single live birth; O70.0 First degree perineal laceration during delivery